=== PATIENT | female | born 1985 | race Caucasian/White ===

== ENCOUNTER 2016-07-15 23:59 | Emergency (ER) | payer OTHER ==
--- NOTE | ~2016-07-15 | CT16 ---
[facility] A Service of [facility] & [facility] / [facility] RADIOLOGY TEXT RESULTS PATIENT: CORNEL SANTOS LOCATION: SED : 89 UNIT #: [id number] AGE: [address]: Chuck Salguero MD SEX: F ORDER DR: [id number] [address] [address] [id number] E MR#: [id number] Acc #: [id number] NAME: CORNEL SANTOS : 1985 SEX: F STUDY DATE/TIME: 07/16/2016 3:28 UNIT: SED ROOM: STUDY DESCRIPTION: CT Angio Chest for PE Attending Physician: Chuck Salguero M.D. Ordering Physician: Chuck Salguero M.D. Primary Care Physician: Heena Strauss M.D. MEDICAL IMAGING REPORT This report is preliminary unless electronic signature is present. EXAM CT angiography of the chest with IV contrast, PE protocol COMPARISON CT abdomen and pelvis dated June 27, 2011. INDICATION 31-year-old female with chest pain approximately 20 minutes prior to arrival to the ER tonight. History of asthma. TECHNIQUE Axial CT imaging of the chest was performed during pulmonary arterial phase of postcontrast imaging. 80 mL of Isovue-370 were administered. Coronal MIPs and sagittal reformats were subsequent constructed. This CT exam was performed with one or more of the following radiation dose reduction techniques: automatic exposure control, adjustment of mA and/or kV according to patient size, and iterative reconstruction. FINDINGS No acute fractures or suspicious osseous lesions. Right hilar lymph node measuring up to 1.1 cm short axis with a separate left hilar lymph node measuring up to 1.0 cm short axis. Minimal residual thymic tissue in the anterior mediastinum. There are a few subcentimeter AP window lymph nodes. There is normal heart size without pericardial effusion. Normal caliber of the thoracic aorta and pulmonary artery. 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 There is normal caliber of the main pulmonary artery. Cardiac pulsation artifact is seen through the ascending aorta and main pulmonary artery. Possibly artifactual and due to admixture artifact, there is questionable nonocclusive focal segmental pulmonary embolus in the right upper lobe. There is no other evidence of possible pulmonary embolus. No evidence of STS. [facility] A Service of [facility] & [facility] / [facility] RADIOLOGY TEXT RESULTS PATIENT: CORNEL SANTOS LOCATION: [facility] [place] : [birth year] UNIT #: [id number] AGE: [address]: Chuck Sagluero MD SEX: F ORDER DR: right-sided heart strain. There is no evidence of pulmonary infarct. No pneumothorax, pleural effusion or acute airspace disease. There is hepatic steatosis. There is a 1.1 cm portocaval lymph node in the upper abdomen. Visualized airways are widely patent. IMPRESSION 1. The exam is mildly limited by motion. There is apparent very focal nonocclusive filling defect within a segmental pulmonary artery in the right upper lobe. The exam is limited by motion and this could be artifactual, also possibly due to admixture artifact of contrast opacified and non-opacified blood but acute pulmonary embolus cannot be excluded. There is no other evidence of possible pulmonary embolus. There is no evidence of pulmonary infarct. There is no acute airspace disease or pleural effusion. 2. Prominent bilateral hilar lymph nodes measure up to 1.1 cm on the right and 1.0 cm on the left, most likely reactive in the absence of a known malignancy. 3. 1.1 cm portocaval lymph node, also likely reactive. 4. Hepatic steatosis. 1. 1. Dictated by... Petros Mcgill M.D. THIS IS AN ELECTRONICALLY VERIFIED REPORT Petros Mcgill M.D. at 07/20/2016 7:13 AM Ness TD: 07/16/2016 09:47 JOB #: [id number] MEDICAL IMAGING REPORT
--- NOTE | ~2016-07-15 | CT16 ---
[facility] A Service of [facility] & [facility] RADIOLOGY TEXT RESULTS PATIENT: CORNEL SANTOS LOCATION: SED : 89 UNIT #: [id number] AGE: [address]: Chuck Salguero MD SEX: F ORDER DR: [id number] [address] [address] [id number] E MR#: [id number] Acc #: [id number] NAME: CORNEL SANTOS : 1985 SEX: F STUDY DATE/TIME: 07/16/2016 UNIT: SED ROOM: STUDY DESCRIPTION: CT Angio Chest for PE Attending Physician: Chuck Salguero M.D. Ordering Physician: Chuck Salguero M.D. Primary Care Physician: Heena Strauss M.D. [facility] MEDICAL IMAGING REPORT EXAM CT angiography of the chest with IV contrast PE protocol. COMPARISON CT angiogram chest on same date at 03:28 a.m. HISTORY 31-year-old female with acute chest pain 20 minutes prior to arrival to the emergency department. Questionable pulmonary embolus on CT performed earlier today. Repeat contrast bolus was indicated. FINDINGS Axial CT imaging was performed during pulmonary arterial phase and post contrast imaging after administration of 80 mL Isovue 370. Coronal MIPS and sagittal reformats were constructed. Airways are widely patent. No pneumothorax, pleural effusion or acute airspace disease. There is less cardiac pulsation artifact on the current exam. Four vessel aortic arch is again noted with takeoff of the left vertebral artery between the left common carotid and subclavian arteries. No acute fractures or suspicious osseous lesions. There is top normal heart size without pericardial effusion. Normal caliber of the thoracic aorta and pulmonary artery. This study confirms that the questionable filling defect in the right upper lobe in the pulmonary artery was artifactual and due to pulsation artifact. There is no current evidence of pulmonary embolus. Prominent bilateral hilar lymph nodes are again noted measuring up to approximately 1.1 cm on the right and up to approximately 1 cm on the left. Hepatic steatosis is again noted. 1.3 cm short axis portocaval lymph node is noted, likely reactive. IMPRESSION 1. No evidence of pulmonary embolus. The finding seen on most recent comparison CT angiogram through the chest was artifactually related most likely related to cardiac pulsation artifact which is not seen STS. [facility] A Service of [facility] & [facility] RADIOLOGY TEXT RESULTS PATIENT: CORNEL SANTOS LOCATION: [facility] [place] : 89 UNIT #: [id number] AGE: [address]: Chuck Salguero MD SEX: F ORDER DR: on this current exam. 2. No evidence of acute airspace disease. 3. Prominent bilateral perihilar lymph nodes measuring up to 1.1 cm as well as 1.3 cm portocaval lymph node. These findings are likely reactive given the patient does not has history of malignancy. 1. Dictated byTugende Name: [id number] TD: 07/16/2016 10:29 JOB #: [id number] [facility] MEDICAL IMAGING REPORT
[~2016-07-15 23:59] MED LIST: ABREVA TOP; ACETAMINOPHEN; ACETAMINOPHEN PO; ALBUTEROL17 GM; ALBUTEROL17 GM INH; AUGMENTIN PO; BIRTH CONTROL PILL; BUSPAR15 MG; DICLOFENAC PO; FIORICET W/CODE1 CAP PO; FLAGYL PO; FLEXERIL10 MG PO; MEDROL4 MG/DOSE- PO; MOBIC PO; NABUMETONE PO; NAPROSYN500 MG PO; PHENERGAN DM1 ML PO; PHENERGAN25 MG PO; PREDNISONE PO; PRILOSEC; PRILOSEC PO; PRILOSEC20 M1 PO; QVAR7.3 GM INH; RANITIDINE HCL150 M1; RANITIDINE HCL150 M1 PO; TESSALON200 MG PO; VENLAFAXINE HC225 MG; VICODIN 5/1 TAB 5/50 PO; ZANTAC PO; ZITHROMAX1 G/PKT PO; ZYRTEC PO
[2016-07-16] MEDS ORDERED: KLONOPIN (00:02)
[2016-07-16 02:33] LABS: BASOPHIL% 0.6 % (0-2.5); EOSINOPHIL# 0.1 X10e3 (0-0.7); EOSINOPHIL% 1.3 % (0.0-7.0); HEMATOCRIT 38.4 % (35.0-45.0); HEMOGLOBIN 12.8 gm/dL (12.0-16.0); LYMPHOCYTE# 3.4 X10e3 (1.0-3.5); LYMPHOCYTE% 42.3 % (17.0-45.0); MEAN CELL VOLUME 87.6 FL (83-96); MEAN CORPUSCULAR HEMOGLOBIN 29.2 PG (28-34); MEAN CORPUSCULAR HGB CONC 33.3 g/dL (30-36); MEAN PLATELET VOLUME 7.5 FL (6.5-11.5); MONOCYTE# 0.4 X10e3 (0-1.0); MONOCYTE% 4.8 % (3.0-12.0); NEUTROPHIL# 4.1 X10e3 (1.5-7.1); PLATELET COUNT 232 X10e3 (140-420); RED BLOOD COUNT 4.38 X10e (3.90-5.30); RED CELL DISTRIBUTION WIDTH 14.6 % (11.0-15.5); WHITE BLOOD COUNT 7.9 X10e3 (4.0-10.5)
[2016-07-16 02:36] LABS: DIFF IND NO
[2016-07-16 02:42] LABS: PROTHROMBIN TIME (PATIENT) 11.3 SECONDS (9.5-12.4)
[2016-07-16 02:47] LABS: POC - CKMB 1.6 ng/mL (0.0-7.9); POC - MYOGLOBIN 68.1 ng/mL (0.0-169.0); POC - TROPONIN <0.05 ng/mL (<=0.05)
[2016-07-16 02:49] LABS: PARTIAL THROMBOPLASTIN TIME 27.4 SECONDS (25.6-38.1)
[2016-07-16 02:51] LABS: ALBUMIN SERUM 3.8 g/dL (3.5-5.0); ALKALINE PHOSPHATASE 70 U/L (32-92); ALT (SGPT) 59 U/L (10-40); AST (SGOT) 34 U/L (10-42); BILIRUBIN, DIRECT 0.1 mg/dL (0.0-0.2); BILIRUBIN,INDIRECT 0.1 mg/dL (0.0-0.9); BILIRUBIN,TOTAL 0.2 mg/dL (0.2-2.0); BLOOD UREA NITROGEN 9 mg/dL (9-23); BUN/CREATININE RATIO 11.25; CALCIUM SERUM 8.2 mg/dL (8.4-10.2); CARBON DIOXIDE 24 mmol/L (22-31); CHLORIDE 101 mmol/L (100-111); CREATININE SERUM 0.8 mg/dL (0.6-1.4); GLOM FILT RATE Estimated ABOVE60 mL/min (>60); GLUCOSE FASTING 99 mg/dL (70-110); POTASSIUM 3.1 mmol/L (3.5-5.1); PROTEIN TOTAL SERUM 7.1 g/dL (6.0-8.3); SODIUM 133 mmol/L (135-145)
[2016-07-16 04:42] LABS: POC - CKMB 1.5 ng/mL (0.0-7.9); POC - TROPONIN 0.06 ng/mL (<=0.05)
[2016-07-16 05:01] LABS: POC - CKMB 1.5 ng/mL (0.0-7.9); POC - MYOGLOBIN 69.2 ng/mL (0.0-169.0); POC - TROPONIN <0.05 ng/mL (<=0.05)
[2016-07-16 06:30] LABS: POC - CKMB 1.6 ng/mL (0.0-7.9); POC - MYOGLOBIN 92.4 ng/mL (0.0-169.0); POC - TROPONIN <0.05 ng/mL (<=0.05)
[2016-09-20] MEDS ORDERED: ALBUTEROL17 GM (15:20)
[2016-09-20] MEDS ORDERED: NEURONTIN (15:21)
== END 2016-07-16 06:33 | disposition home or self-care (01) ==
LOC: SED 23:59
PROVIDERS: Emergency Medicine
DX: R07.9 Chest pain, unspecified (principal); E87.6 Hypokalemia; K21.9 Gastro-esophageal reflux disease without esophagitis; F41.9 Anxiety disorder, unspecified; Z88.5 Allergy status to narcotic agent; Z88.6 Allergy status to analgesic agent
CPT/HCPCS: 36415; 71275; 80048; 80076; 82553; 83874; 84484; 84703; 85025; 85379; 85610; 85730; 93005; 96360; 99284; C9113; Q9967

== ENCOUNTER 2016-09-20 16:32 | Emergency (ER) | payer OTHER ==
--- NOTE | ~2016-09-20 | CR72 ---
[facility]. [facility] A Service of [facility] & [facility] RADIOLOGY TEXT RESULTS PATIENT: CORNEL SANTOS LOCATION: SED : [birth year] UNIT #: [id number] AGE: [address]: Huseyin Hugo MD SEX: F ORDER DR: [id number] [address] [address] [id number] E MR#: [id number] Acc #: [id number] NAME: CORNEL SANTOS : 1985 SEX: F STUDY DATE/TIME: 09/20/2016 16:05 UNIT: SED ROOM: STUDY DESCRIPTION: CR Chest Single View Portable Attending Physician: Huseyin Hugo M.D. Ordering Physician: Huseyin Hugo M.D. Primary Care Physician: Heena Strauss M.D. MEDICAL IMAGING REPORT This report is preliminary unless electronic signature is present. EXAM Portable chest INDICATIONS Chest pain this morning. TECHNIQUE Frontal view chest. COMPARISON 03/04/2013. FINDINGS Heart size normal. Lungs are clear. No pleural fluid or pneumothorax. IMPRESSION No active process. Dictated by... Dionicio Davis M.D. THIS IS AN ELECTRONICALLY VERIFIED REPORT Dionicio Davis M.D. at 09/21/2016 7:06 AM EED/yoly TD: 09/20/2016 18:31 JOB #: [id number] MEDICAL IMAGING REPORT Page 1 of 1
--- NOTE | ~2016-09-20 | EKG ---
PATIENT: CORNEL SANTOS UNIT #: [id number] Ventricular Rate: 97 BPM Atrial Rate: 97 BPM P-R Interval: 142 ms QRS Duration: 74 ms Q-T Interval: 336 ms QTC Calculation(Bezet): 426 ms P [place]: 35 degrees Calculated R [place]: 5 degrees Calculated T [place]: 47 degrees Diagnosis Line: Normal sinus rhythm Diagnosis Line: Poor R wave progression questionable lead position Diagnosis Line: or body habitus Baseline wander Otherwise normal Diagnosis Line: ECG Diagnosis Line: When compared with ECG of 16-JUL-2016 00:06, Diagnosis Line: (unconfirmed) Diagnosis Line: No significant change was found Diagnosis Line: Confirmed by MARIE THOMPSON MD ([id number]) on 09/23/2016 Diagnosis Line: 3:47:59 PM INTERPRETING MD: DONNA WALKER
[2016-09-20 16:00] LABS: BASOPHIL# 0.1 X10e3 (0-0.3); BASOPHIL% 0.6 % (0-2.5); EOSINOPHIL# 0.1 X10e3 (0-0.7); EOSINOPHIL% 1.2 % (0.0-7.0); HEMATOCRIT 39.5 % (35.0-45.0); HEMOGLOBIN 13.1 gm/dL (12.0-16.0); LYMPHOCYTE% 30.1 % (17.0-45.0); MEAN CELL VOLUME 88.4 FL (83-96); MEAN CORPUSCULAR HEMOGLOBIN 29.2 PG (28-34); MEAN CORPUSCULAR HGB CONC 33.1 g/dL (30-36); MEAN PLATELET VOLUME 8.2 FL (6.5-11.5); MONOCYTE# 0.4 X10e3 (0-1.0); MONOCYTE% 4.5 % (3.0-12.0); NEUTROPHIL# 6.3 X10e3 (1.5-7.1); NEUTROPHIL% 63.6 % (40-75); PLATELET COUNT 225 X10e3 (140-420); RED BLOOD COUNT 4.47 X10e (3.90-5.30); RED CELL DISTRIBUTION WIDTH 14.3 % (11.0-15.5); WHITE BLOOD COUNT 9.8 X10e3 (4.0-10.5)
[2016-09-20 16:01] LABS: DIFF IND NO
[2016-09-20 16:15] LABS: POC - CKMB 1.7 ng/mL (0.0-7.9); POC - TROPONIN <0.05 ng/mL (<=0.05)
[2016-09-20 16:19] LABS: INR 1.1; PROTHROMBIN TIME (PATIENT) 12.2 SECONDS (9.5-12.4)
[2016-09-20 16:26] LABS: PARTIAL THROMBOPLASTIN TIME 27.5 SECONDS (25.6-38.1)
[2016-09-20 16:27] LABS: ALBUMIN SERUM 3.5 g/dL (3.5-5.0); ALKALINE PHOSPHATASE 66 U/L (32-92); ALT (SGPT) 52 U/L (10-40); AST (SGOT) 36 U/L (10-42); BILIRUBIN,TOTAL 0.4 mg/dL (0.2-2.0); BLOOD UREA NITROGEN 7 mg/dL (9-23); BUN/CREATININE RATIO 8.75; CALCIUM SERUM 8.8 mg/dL (8.4-10.2); CARBON DIOXIDE 28 mmol/L (22-31); CHLORIDE 103 mmol/L (100-111); CREATININE SERUM 0.8 mg/dL (0.6-1.4); GLOM FILT RATE Estimated 99.7 mL/min (>60); GLUCOSE FASTING 111 mg/dL (70-110); POTASSIUM 3.4 mmol/L (3.5-5.1); PROTEIN TOTAL SERUM 6.7 g/dL (6.0-8.3); SODIUM 134 mmol/L (135-145)
[2016-09-20 16:30] LABS: BILIRUBIN, DIRECT <0.1 mg/dL (0.0-0.2); BILIRUBIN,INDIRECT 0.3 mg/dL (0.0-0.9)
[~2016-09-20 16:32] MED LIST changes: +KLONOPIN; +NEURONTIN
[2016-09-20 17:22] LABS: POC - CKMB 1.7 ng/mL (0.0-7.9); POC - TROPONIN <0.05 ng/mL (<=0.05)
== END 2016-09-20 17:44 | disposition home or self-care (01) ==
LOC: SED 16:32
PROVIDERS: Emergency Medicine
DX: R09.1 Pleurisy (principal); J45.909 Unspecified asthma, uncomplicated; K21.9 Gastro-esophageal reflux disease without esophagitis; F17.200 Nicotine dependence, unspecified, uncomplicated; Z88.5 Allergy status to narcotic agent; Z88.6 Allergy status to analgesic agent
CPT/HCPCS: 36415; 71010; 80048; 80076; 82553; 83880; 84484; 85025; 85379; 85610; 85730; 93005; 99284